=== PATIENT | male | born 1980 | race Caucasian/White ===

== ENCOUNTER 2017-07-08 11:01 | Emergency (ER) | payer OTHER ==
[2017-07-08] MEDS ORDERED: ASPIRIN 81 MG CHEWABLE CTB ONE (11:11)
[2017-07-08] MEDS ORDERED: ASPIRIN 81 MG CHEWABLE CTB PO ONE (11:11)
[2017-07-08] MEDS ORDERED: NITROGLYCERIN 0.4 MG TAB SL PRN (11:12)
[2017-07-08 11:20] LABS: BASOPHILS % (AUTO) 1 % (0-3); EOSINOPHILS % (AUTO) 2 % (0-9); HEMATOCRIT 43 % (39-53); HEMOGLOBIN 13.7 gm/dl (13.5-17.7); LYMPHOCYTES % (AUTO) 22.6 % (10-50); MEAN CORPUSCULAR HEMOGLOBIN 25.5 pg (27.0-32.0); MEAN CORPUSCULAR HGB CONC 31.8 gm/dl (32.0-36.0); MONOCYTES % (AUTO) 7.9 % (0-12); NEUTROPHILS % (AUTO) 66.9 % (37-80)
[2017-07-08 11:22] LABS: MEAN CORPUSCULAR VOLUME 80 fL (80-100)
[2017-07-08 11:24] LABS: INR 2.54 (0.86-1.12)
[2017-07-08 11:39] LABS: ALBUMIN 3.9 gm/dl (3.4-5.0); ALKALINE PHOSPHATASE 76 IU/L (46-116); ALT 43 IU/L (14-63); AST 21 IU/L (15-37); BILIRUBIN,TOTAL 0.3 mg/dl (0.2-1.0); BLOOD UREA NITROGEN 10 mg/dl (7-18); CALCIUM 8.9 mg/dl (8.5-10.1); CHLORIDE 100 mMol/L (98-107); CREATININE 0.77 mg/dl (0.80-1.30); GLOM FILT RATE 114 mL/min (>60); GLUCOSE 89 mg/dl (74-106); POTASSIUM 3.7 mMol/L (3.5-5.1); SODIUM 138 mMol/L (136-145); TOTAL PROTEIN 8.2 gm/dl (6.4-8.2); TROP I < 0.017 ng/ml (0.000-0.056)
[2017-07-08 12:56] VITALS: O2SAT 100
[2017-07-08 15:22] VITALS: TEMP 97.7
[2017-07-08 15:23] VITALS: RESP 20
[2017-07-08 15:24] VITALS: BP 116/65; PULSE 86
== END 2017-07-08 15:09 | disposition home or self-care (01) | DRG 313 ==
LOC: ED 11:01
DX: R07.9 Chest pain, unspecified (principal); F41.9 Anxiety disorder, unspecified; R00.2 Palpitations; Z79.01 Long term (current) use of anticoagulants
CPT/HCPCS: 36415; 71045; 80053; 84484; 85025; 85610; 93005; 99283; 99284